=== PATIENT | female | born 1940 | race Caucasian/White ===

== ENCOUNTER → 2017-09-19 | Outpatient (CLI) | payer MEDICARE, OTHER | END | disposition home or self-care (01) | LOC: HKI 09:09 | DX: M25.562 Pain in left knee (principal); M54.5 Low back pain | CPT/HCPCS: G0463 ==

== ENCOUNTER → 2017-11-01 | Outpatient (CLI) | payer MEDICARE, OTHER ==
[~2017-11-01] MED LIST: BARIUM SULF 2% 450 ML BTL (BERRY SMOOTHIE) PO
== END | disposition home or self-care (01) ==
LOC: C/S 09:47
DX: R10.9 Unspecified abdominal pain (principal); K74.60 Unspecified cirrhosis of liver; K76.6 Portal hypertension; R16.1 Splenomegaly, not elsewhere classified; R18.8 Other ascites; K57.30 Diverticulosis of large intestine without perforation or abscess without bleeding
CPT/HCPCS: 74176

== ENCOUNTER → 2017-12-26 | Outpatient (CLI) | payer MEDICARE, OTHER | END | disposition home or self-care (01) | LOC: HKI 09:45 | DX: M54.5 Low back pain (principal) | CPT/HCPCS: 73562; 73562-RT ==

== ENCOUNTER 2018-01-17 06:46 | Day surgery (SDC) | payer MEDICARE, OTHER ==
[2018-01-17] MEDS ORDERED: PROPOFOL 20 ML (08:14)
[2018-01-17] MEDS ORDERED: LIDOCAINE 2% (SDV) 5 ML INJ (08:14)
[2018-01-17] MEDS ORDERED: PHENYLephrine (100 MCG/ML) 5ML SYG (08:22)
[2018-01-17] MEDS ORDERED: HYDROmorphONE 1 MG/ML SYG (09:03)
== END 2018-01-17 11:55 | disposition home or self-care (01) ==
LOC: GIL 06:46
DX: K29.50 Unspecified chronic gastritis without bleeding (principal); I85.00 Esophageal varices without bleeding; K21.0 Gastro-esophageal reflux disease with esophagitis; I10 Essential (primary) hypertension
CPT/HCPCS: 43239; 88305; 88312

== ENCOUNTER 2018-06-06 10:13 | Emergency (ER) | payer MEDICARE, OTHER ==
[2018-06-06] MEDS: KETOROLAC 15 MG INJ IM (14:33)
== END 2018-06-06 14:49 | disposition home or self-care (01) ==
LOC: FTE 10:13
DX: M25.562 Pain in left knee (principal); M25.561 Pain in right knee; I10 Essential (primary) hypertension
CPT/HCPCS: 73564; 73564-50; 96372; 99284-25

== ENCOUNTER → 2018-06-09 | Outpatient (CLI) | payer MEDICARE, OTHER | END | disposition home or self-care (01) | LOC: HKI 11:37 | DX: M17.11 Unilateral primary osteoarthritis, right knee (principal); M25.562 Pain in left knee; Z91.81 History of falling; Z96.652 Presence of left artificial knee joint | CPT/HCPCS: G0463 ==

== ENCOUNTER → 2018-06-23 | Outpatient (CLI) | payer MEDICARE, OTHER | END | disposition home or self-care (01) | LOC: HKI 10:00 | DX: M17.11 Unilateral primary osteoarthritis, right knee (principal) | CPT/HCPCS: 20610 ==

== ENCOUNTER → 2018-06-30 | Outpatient (CLI) | payer MEDICARE, OTHER | END | disposition home or self-care (01) | LOC: HKI 09:46 | DX: M17.11 Unilateral primary osteoarthritis, right knee (principal); M25.561 Pain in right knee | CPT/HCPCS: 20610 ==

== ENCOUNTER → 2018-07-07 | Outpatient (CLI) | payer MEDICARE, OTHER | END | disposition home or self-care (01) | LOC: HKI 09:28 | DX: M25.561 Pain in right knee (principal); M17.11 Unilateral primary osteoarthritis, right knee | CPT/HCPCS: 20610 ==

== ENCOUNTER → 2018-08-08 | Outpatient (CLI) | payer MEDICARE, OTHER ==
[2018-08-08] MEDS: SOD CHLORIDE 0.9% 100 ML (10:10)
[2018-08-08] MEDS: IOHEXOL 300MG/ML 150 ML BTL (10:11)
== END | disposition home or self-care (01) ==
LOC: C/S 09:38
DX: R10.84 Generalized abdominal pain (principal); Z88.2 Allergy status to sulfonamides
CPT/HCPCS: 74177

== ENCOUNTER → 2018-08-25 | Outpatient (CLI) | payer MEDICARE, OTHER | END | disposition home or self-care (01) | LOC: HKI 11:45 | DX: M17.11 Unilateral primary osteoarthritis, right knee (principal) | CPT/HCPCS: G0463 ==

== ENCOUNTER 2018-09-16 09:25 | Day surgery (SDC) | payer MEDICARE, OTHER ==
[2018-09-16] MEDS ORDERED: PROPOFOL 40 ML (10:09)
[2018-09-16] MEDS ORDERED: CIPROFLOXACIN 400MG/D5W 200 ML (10:48)
== END 2018-09-16 14:52 | disposition home or self-care (01) ==
LOC: GIL 09:25
DX: D12.5 Benign neoplasm of sigmoid colon (principal); K57.30 Diverticulosis of large intestine without perforation or abscess without bleeding; K55.8 Other vascular disorders of intestine; I85.10 Secondary esophageal varices without bleeding; K29.00 Acute gastritis without bleeding; I10 Essential (primary) hypertension
CPT/HCPCS: 43239; 88305